=== PATIENT | female | born 1975 | race Hispanic/Latino ===

== ENCOUNTER 2020-01-20 15:30 | Outpatient (CLI) | payer OTHER ==
--- NOTE | 2020-01-20 16:04 | RAD ---
Exam:3 views right elbow HISTORY: Pain, without trauma COMPARISON: None FINDINGS: No fracture or dislocation. Glenohumeral joint space preserved. No fractures or malalignmen t. IMPRESSION: No significant degenerative change.
== END 2020-01-20 15:31 | disposition home or self-care (01) ==
LOC: MADRAD 15:30
PROVIDERS: ATTEND Family Medicine
DX: M25.511 Pain in right shoulder (principal)

== ENCOUNTER 2025-05-19 12:24 | Emergency (ER) | payer SELFPAY | END 2025-05-19 13:25 | disposition home or self-care (01) | LOC: MADERS 12:24 | DX: S80.02XA Contusion of left knee, initial encounter (principal); S50.11XA Contusion of right forearm, initial encounter; Z59.71 Insufficient health insurance coverage; W01.0XXA Fall on same level from slipping, tripping and stumbling without subsequent striking against object, initial encounter | CPT/HCPCS: 99283 ==